=== PATIENT | male | born 1955 | race Caucasian/White ===

== ENCOUNTER 2019-11-22 08:59 | Emergency (ER) | payer OTHER ==
[~2019-11-22] VITALS: Ht 167.6 cm; Wt 95.3 kg
[2019-11-22] MEDS ORDERED: VYTORIN 10-401 EACH (09:09)
[2019-11-22] MEDS ORDERED: ATACAND16 MG (09:09)
[2019-11-22] MEDS ORDERED: CIPRO500 MG (09:10)
[2019-11-22] MEDS ORDERED: FLAGYL500MG (09:10)
[2019-11-22] MEDS ORDERED: FLAGYL500MG PO (11:34)
[2019-11-22] MEDS ORDERED: NEXIUM40 M1 PO (11:34)
[2019-11-22] MEDS ORDERED: CIPRO500 MG PO (11:34)
[2019-11-22] MEDS ORDERED: LEVSIN/SL0.125 MG SL (11:35)
== END 2019-11-22 13:11 | disposition home or self-care (01) ==
LOC: ER 08:59
DX: K57.32 Diverticulitis of large intestine without perforation or abscess without bleeding (principal)

== ENCOUNTER 2019-11-27 14:15 | Inpatient (IN) | payer OTHER ==
[~2019-11-27] VITALS: Ht 167.6 cm; Wt 95.3 kg
[~2019-11-27 14:15] MED LIST: ATACAND16 MG; CIPRO500 MG; CIPRO500 MG PO; FLAGYL500MG; FLAGYL500MG PO; LEVSIN/SL0.125 MG SL; NEXIUM40 M1 PO; VYTORIN 10-401 EACH
== END 2019-12-22 16:40 | disposition home or self-care (01) | DRG 331 ==
LOC: O/R 12-19 06:17 → SURH 12-19 06:17
PROVIDERS: ADMIT Colon & Rectal Surgery; ATTEND Colon & Rectal Surgery
PROC: 0DJD8ZZ Inspection of Lower Intestinal Tract, Via Natural or Artificial Opening Endoscopic (ICD-10-PCS; 2019-12-19)
PROC: 4A033R1 Measurement of Arterial Saturation, Peripheral, Percutaneous Approach (ICD-10-PCS; 2019-12-19)
PROC: 4A12X4Z Monitoring of Cardiac Electrical Activity, External Approach (ICD-10-PCS; 2019-12-19)
PROC: 0DTN4ZZ Resection of Sigmoid Colon, Percutaneous Endoscopic Approach (ICD-10-PCS; principal; 2019-12-19 07:00)
DX: K57.32 Diverticulitis of large intestine without perforation or abscess without bleeding (principal); Z20.828 Contact with and (suspected) exposure to other viral communicable diseases; I11.9 Hypertensive heart disease without heart failure; E78.00 Pure hypercholesterolemia, unspecified; R73.01 Impaired fasting glucose; G47.33 Obstructive sleep apnea (adult) (pediatric)